=== PATIENT | female | born 1975 | race Caucasian/White ===

== ENCOUNTER 2022-12-27 10:10 | Emergency (ER) | payer BC, SELFPAY ==
[2022-12-27 10:19] VITALS: BP 174/113; PULSE 92; RESP 98; TEMP 36.2; O2SAT 98
[2022-12-27 10:22] VITALS: BP 174/113; PULSE 92; RESP 98; TEMP 36.2; O2SAT 98
--- NOTE | 2022-12-27 11:03 | ED.URI ---
HPI - URI/Sore Throat General Chief Complaint: Upper Respiratory Infection Stated Complaint: bronchitis Time Seen by Provider: 12/27/22 11:04 Source: patient, RN notes reviewed and old records reviewed Mode of arrival: ambulatory Limitations: no limitations History of Present Illness HPI Narrative: 47 year old female who presents to [facility] care with complaints of cough and wheezing since Tuesday and week before she reports cold symptoms. Patient reports that her symptoms have increased over the weekend. Patient does reports some headache and some body aches with tenderness to chest with frequent cough.Patient reports that she has history of previous Bronchitis with same symptoms, denies any fevers. Patient reports that she has had COVID immunizations no booster,did have COVID in September of 2022, no flu shot. MD elicited complaint: cough and other (wheezing) Pertinent past history: other (bronchitis) Onset (ago): day(s) (3-4) Pain scale (0-10): 0 Able to tolerate fluids by mouth: Yes Treatments prior to arrival: other (flonase, Mucinex) Related Data Home Medications Medication Instructions Recorded Confirmed lisinopril 5 mg tablet 5 mg PO DAILY 12/27/22 12/27/22 Allergies Allergy/AdvReac Type Severity Reaction Status Date / Time No Known Allergies Allergy Verified 12/27/22 10:21 Review of Systems Review of Systems: CONSTITUTIONAL: Denies malaise, chills, sweats, or fever. EYES: Denies visual changes, redness, or discharge. ENT: Reports rhinorrhea, congestion, sinus pain, no otalgia denies sore throat. CARDIOVASCULAR: Denies chest pain, palpitations, or edema. RESPIRATORY: Reports frequent cough.? Denies dyspnea.states some chest soreness from frequent cough GASTROINTESTINAL: Denies abdominal pain, nausea, vomiting, diarrhea SKIN: Denies rash or itching. MUSCULOSKELETAL: Reports myalgia. NEUROLOGIC:Reports headache. All systems reviewed & are unremarkable except as noted in HPI and below PMFSH Past Medical History Medical History (Updated 12/28/22 @ 11:14 by Cheyenne Arevalo NP) Bronchitis COVID-20 September 2022 Hypertension Social History Social History (Updated 12/28/22 @ 11:16 by Cheyenne Arevalo NP) Smoking status: Former smoker Additional smoking assessment comments: quit 8 years ago Alcohol intake: current Alcohol use details: social Substance use type: does not use Living arrangements: with family Gender identity (if verbalized by the patient): Female Comments At time of signature, agree with nursing past medical, surgical, social and family history. There is no relevant family history pertinent to the presenting complaint Exam Narrative: GENERAL: Well-appearing, well-nourished, and in no acute distress. HEAD: Normocephalic EYES: PERRLA, conjunctivae clear ENT: Nares clear, turbinates edematous and erythematous, clear discharge. Mucous membranes moist. TM pearly mccarty with dull light reflex bilaterally; no tragal tenderness. Oropharynx erythematous without lesions. Tonsils not enlarged and without exudate, no drooling, no hoarseness, no trismus, uvula midline. NECK: Supple. No lymphadenopathy CHEST: scattered wheezing on auscultation, breath sounds equal.Positive wheezing,no rhonchi, rales, or stridor. No respiratory distress, speaks in full sentences.harsh cough, SAO2 98% on room air HEART: Regular rate and rhythm. No murmur heard. SKIN: Warm, dry, no rash. NEURO: Alert and oriented x3. PSYCH: Normal mood and affect Course Course Emergency Course: Patient is aware of diagnosis, understands and agrees to treatment plan.? Anticipatory guidance given.? Patient agrees to follow-up as directed and is aware of reasons to seek care at the emergency department. Portions of this record may have been created with voice recognition software Level of Care: Express Care Visit Vital Signs Vital signs: Vital Signs Temperature 36.2 C L 12/27/22 10:19
== END 2022-12-27 11:28 | disposition home or self-care (01) ==
PROVIDERS: Emergency Provider Registered Nurse
DX: J40 Bronchitis, not specified as acute or chronic (principal); I10 Essential (primary) hypertension; Z87.891 Personal history of nicotine dependence
CPT/HCPCS: 99213; G0463

== ENCOUNTER 2024-07-31 12:10 | Outpatient (CLI) | payer BC, SELFPAY ==
--- NOTE | ~2024-07-31 | MM_ITS ---
EXAMINATION: MM screening [facility] w leonardo HISTORY: Screening mammogram TECHNIQUE: Craniocaudal and mediolateral oblique 3-D tomosynthesis images were obtained and synthetic 2-D images were generated. CAD analysis was submitted and interpreted. COMPARISON: No prior mammogram is available for comparison at this institution. BREAST PARENCHYMAL COMPOSITION:Not Dense. There are scattered areas of fibroglandular density. FINDINGS: There is a 4 mm circumscribed mass at the posterior, central left breast on MLO view. No pa renchymal abnormality the right breast seen. No suspicious microcalcifications. IMPRESSION: 4 mm circumscribed low-density mass at the posterior left breast, as above. Exaggerated CC view and ultrasound recommended to further assess. BI-RADS Category 0: Incomplete: Needs additional imaging evaluation. Reviewed, dictated and finalized at [facility]. IMPRESSION: 4 mm circumscribed low-density mass at the posterior left breast, as above. Ex aggerated CC view and ultrasound recommended to further assess. BI-RADS Category 0: Incomplete: Needs additional imaging evaluation.
== END 2024-07-31 12:11 | disposition home or self-care (01) ==
LOC: MICIMG 12:11
PROVIDERS: PCP Physician Assistant Medical; Visit Provider Physician Assistant Medical
DX: Z12.31 Encounter for screening mammogram for malignant neoplasm of breast (principal); R92.8 Other abnormal and inconclusive findings on diagnostic imaging of breast
CPT/HCPCS: 77063; 77067

== ENCOUNTER 2025-08-02 15:41 | Outpatient (CLI) | payer OTHER, SELFPAY ==
--- NOTE | ~2025-08-02 | MM_ITS ---
EXAMINATION: MM screening [facility] BI w leonardo HISTORY: Screening TECHNIQUE: Craniocaudal and mediolateral oblique 3-D tomosynthesis images were obtained and synthetic 2-D images were generated. CAD analysis was submitted and interpreted. COMPARISON: Comparison to multiple prior studies sequentially, with oldest reviewed study dated 04/10/2021. BREAST PARENCHYMAL COMPOSITION: Not dense: There are scattered areas of fibroglandular density. FINDINGS: There is no evidence of suspicious mass, calcification, or architectural distortion to suggest malignancy in either breast. There has been no suspicious interval change. IMPRESSION: 1. No mammographic evidence of malignancy. 2. Recommend routine screening mammography in one year. BI-RADS Category 1: Negative Reviewed, dictated and finalized at [facility].
== END 2025-08-02 15:42 | disposition home or self-care (01) ==
PROVIDERS: PCP Family Medicine; Visit Provider Family Medicine
DX: Z12.31 Encounter for screening mammogram for malignant neoplasm of breast (principal)
CPT/HCPCS: 77063; 77067